=== PATIENT | female | born 1975 | race Caucasian/White ===

== ENCOUNTER 2023-12-21 13:05 | Emergency (ER) | payer BC ==
--- OUTSIDE RECORDS SUMMARY | 2023-12-21 13:07 | XMS REPORT | Continuity of Care Document ---
Author Name Unknown Address [address] [facility] [place] [address] [facility] Address [address] [facility] [address] [place] [address] Care Team Providers Care Installation Manager Name Role Phone Riya Gill Silas Primary Care Physician [phone] Reji Attending Clinician Unavailab Danie Aldridge Attending Clinician Unavailable Cary Knutson Attending Clinician Unavailable Kenia RN, Monique Attending Clinician Unavailable Doctor Unassigned, [place] Attending Clinician U PATI Robbins Attending Clinician Unavailable Reji Admitting Clinician Unavailab Cary Ruiz Admitting Clinician Unavailable Payers Payer Name Policy Type Policy Number Effective Date Expirati on Date Source [place] [id number] 2020 00:00:00 Problems Condition Name Condition Details Condition Category Status Onset Date Resolution Date Last Treatment Date Treating Clinician Comments Source 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 Active 12-14 00:00: 00 [facility] Urinary incontinen ce Urinary Incontinen ce Problem Active 12-14 00:00: 00 [facility] Allergies, Adverse Reactions, Alerts Allergy Name Allergy Type Status Severity Reaction(s) Onset Date Inactive Date Treating Clinician Comments Source Penicill ins DA Active [place] rash 2022-04- 00:00: 00 [facility] Penicill ins DA Active [place] rash 2022-04- 00:00: 00 [facility] Penicill ins DA Active MO rash 2010-0 6-15 00:00: 00 [facility] NO KNOWN ALLERGIE S Drug Class Active [facility] PENICILL INS Allergy to substanc e Active Itching, Rash [facility] Social History Social Habit Start Date Stop Date Quantity Comments Source [facility] to SARS-CoV-2 (event) 2020-11-16 00:00:00 2020-12-16 11:47:00 Not sure [facility] Sex Assigned At 1975 00:00:00 1975 00:00:00 [facility] Smoking Status Start Date Stop Date Source Tobacco smoking consumption unknown [facility] Vital Signs Vital Name Observation Time Observation Value Comments S ource Body Weight 2023-10-04 00:00:00 126 [lb_av] [facility] BMI (Body Mass Index) 2023-10-04 00:00:00 24.6 kg/m2 [facility] Height 2023-10-04 00:00:00 60 [in_i] [facility] BP Diastolic 2023-10-04 00:00:00 80 mm[Hg] [facility] BP Systolic 2023-10-04 00:00:00 122 mm[Hg] [facility] Procedures Procedure Date / Time Performed Performing Clinician Source Hysterectomy 2023-04-13 00:00:00 [facility] ASSIGNMENT OF BENEFITS 2020-12-16 16:26:40 Docto r Unassigned, [place] [facility] Hernia Repair 2008-04-26 00:00:00 [facility] Encounters Start Date/Time End Date/Time Encounter Type Admission Type Attending Clinicians Care Facility Care Department Encounter ID Source 2023-10-04 00:00:00 2023-10-04 00:00:00 Cary Knutson MD: [id number], [address], [place] [address] , Ph. [phone] [facility] - JUAN _[address] Office* [id number] [facility] 2023-06-09 00:00:00 2023-06-09 00:00:00 Outpatient [facility] _Cathey PRIV PRIV [id number] [facility] 2023-06-08 00:00:00 2023-06-08 00:00:00 Outpatient [facility] _Cathey PRIV PRIV [id number] [facility] 2023-06-07 00:00:00 2023-06-07 00:00:00 [facility]patient [facility] _Cathey PRIV PRIV [id number] [facility] 2023-04-29 00:00:00 2023-04-29 00:00:00 Outpatient [facility] _Cathey PRIV PRIV [id number] [facility] 2023-04-28 00:00:00 2023-04-28 00:00:00 Outpatient [facility] _Cathey PRIV PRIV [id number] [facility] 2023-04-16 15:00:00 2023-04-16 21:15:00 Emergency EM Danie Moran [facility] [id number] [facility] 2023-04-13 05:42:00 2023-04-14 13:04:00 Inpatient ARNDY ZeniaCary jennings [facility].01 [id number] [facility] 2023-03-29 00:00:00 2023-03-29 00:00:00 Outpatient [facility] _Cathey PRIV PRIV [id number] [facility] 2023-03-29 00:00:00 2023-03-29 00:00:00 Outpatient [facility] _Cathey PRIV PRIV [id number] [facility] 2023-03-26 00:00:00 2023-03-26 00:00:00 Outpatient [facility] _Cathey PRIV PRIV [id number] [facility] 2023-03-24 00:00:00 2023-03-24 00:00:00 Outpatient [facility] _Cathey PRIV PRIV [id number] [facility] 2023-02-06 00:00:00 2023-02-06 00:00:00 Outpatient [facility] _Cathey PRIV PRIV [id number] [facility] 2023-01-27 00:00:00 2023-01-27 00:00:00 Outpatient [facility] _Cathey PRIV PRIV [id number] [facility] 2023-01-04 00:00:00 2023-01-04 00:00:00 Outpatient [facility] _Cathey PRIV PRIV [id number] [facility] 2023-01-04 00:00:00 2023-01-04 00:00:00 Outpatient [facility] _Cathey PRIV PRIV [id number] [facility] 2023-01-01 00:00:00 2023-01-01 00:00:00 Outpatient [facility] _Cathey PRIV PRIV [id number] [facility] 2022-12-30 00:00:00 2022-12-30 00:00:00 Outpatient [facility] _Cathey PRIV PRIV [id number] [facility] 2022-12-14 00:00:00 2022-12-14 00:00:00 Outpatient [facility] _Cathey PRIV PRIV [id number] [facility] 2022-12-14 00:00:00 2022-12-14 00:00:00 Outpatient [facility] _Cathey PRIV PRIV [id number] [facility] 2022-12-11 00:00:00 2022-12-11 00:00:00 Outpatient [facility] _Cathey PRIV PRIV [id number] [facility] 2022-12-10 00:00:00 2022-12-10 00:00:00 Outpatient [facility] _Cathey PRIV PRIV [id number] [facility] 2020-12-17 00:00:00 2020-12-17 00:00:00 Letter (Out) Monique Aquino [facility] [id number] [id number] [id number] [facility] 2020-12-17 00:00:00 2020-12-17 00:00:00 Patient Secure Msg Doctor Unassigned, [place] [facility] [id number] [id number] [id number] [facility] 2020-12-16 11:30:00 2020-12-16 11:30:00 Outpatient Rebekah PATI [facility] [id number] [facility] 2020-12-16 00:00:00 2020-12-16 00:00:00 Orders Only Doctor Unassigned, [place] [facility] [id number] 350.1.13.10 4.2.7.2.686 [id number] [facility] Results Test Description Test Time Test Comments Results Resul t Comments Source - CT ABD PELVIS W/CONT 2023-04-16 20:14:00 [facility] 1975 Sex: F Patient Name: ARSLAN TERAN Unit No: [id number] EXAMS: CPT CODE: [id number] CT ABD PELVIS W/CONT 28921 Clinical History: Rule out obstruction s/p partial hysterectomy 04/13. Exam: CT abdomen/pelvis with contrast Comparison: None. Technique: Contiguous 3.75 mm axial images were obtained from the lung bases through the symphysis pubis after the administration of 100 cc of Isovue-300 intravenous contrast only during the portal venous phase. Coronal and sagittal reformatted images are provided. CT radiation dose optimization is achieved for this examination by the use of a CT protocol in accordance with ACR practice standards and adherence to industrial analyst recommendations. One or more of the following dose reduction techniques were used: automated exposure control, adjustment of the mA and/or kV according to patient size, and/or utilization of iterative reconstruction technique. DLP: 185.43 mGy-cm. Findings: Please note that lack of oral contrast limits evaluation of the GI tract. Visualized lung bases are clear. Tiny low-density area within the right hepatic lobe is too small to further characterize and nonspecific. The liver, spleen, pancreas and adrenal glands are unremarkable. Small calcified gallstones without pericholecystic inflammatory changes. Kidneys enhance symmetrically following injection of contrast. Small left renal cyst. Kidneys are otherwise unremarkable with no evidence of hydroureter or hydronephrosis. Unopacified loops are normal in caliber. No evidence of acute appendicitis. A few sigmoid colon diverticula without pericolonic inflammatory changes. Fluid throughout the colon and within several small bowel loops associated with mild mucosal enhancement. Mild mucosal enhancement also suggested of the stomach. Tiny paraesophageal hiatal hernia. No significant bowel wall thickening. No free fluid or air. No lymphadenopathy is identified. The urinary bladder is partially filled and appears grossly unremarkable. No significant pelvic free fluid. Status post [facility] NAME: CRESENCIOARSLAN Radiology Department PHYS: [id number] - Danie Moran MD [address] : 1975 AGE: 47 SEX: F [place], [place] [address] LOC: [place] PHONE #: [phone] EXAM DATE: 04/16/2023 STATUS: REG ER FAX #: [phone] RAD NO: [id number] Page 1 Signed Report 1 Patient Name: ARSLAN TERANN Unit No: [id number] EXAMS: CPT CODE: [id number] CT ABD PELVIS W/CONT 09850 (Continued) hysterectomy with trace stranding within the pelvis. Tiny dots of air along the right lower anterior pelvic wall. There are no aggressive appearing lytic or blastic lesions identified of the visualized bones. Degenerative facet joint arthropathy with grade 1 anterolisthesis of L4 on L5. Impression: Multiple fluid-filled bowel loops with associated mild nonspecific mucosal enhancement may suggest a mild infectious/inflammato ry gastroenterocolitis. No evidence of mechanical bowel obstruction. Multiple surgical changes in the pelvis. Mild colonic diverticulosis. Small gallstones. Small left renal cyst. Degenerative facet joint changes with mild grade 1 anterolisthesis of L4 on L5. at 2014 Reported and signed by: Zoila Allen MD CC: Danie Moran MD Technologist: RT Rolo CTDI: 4.06 DLP: 185.43 Trnscrbd D/ (2013) t.SDR.MT6 [facility] NAME: CRESENCIOARSLAN HERNANDEZ KAYLI Radiology Department PHYS: Danie Herr MD [address] : 1975 AGE: 47 SEX: F [place] [address] LOC: .ERS PHONE #: [phone] EXAM DATE: 04/16/2023 STATUS: REG ER FAX #: [phone] RAD NO: [id number] Page 2 Signed Report 1 Patient Name: ARSLAN TERAN Unit No: [id number] EXAMS: CPT CODE: [id number] CT ABD PELVIS W/CONT 55648 (Continued) Orig Print D/T: S: 04/16/2023 (2016) [facility] NAME: CRESENCIOARSLAN MILAN Radiology Department PHYS: Danie Herr MD [address] : 1975 AGE: 47 SEX: F [place] [address] LOC: F.ERS PHONE #: [phone] EXAM DATE: 04/16/2023 STATUS: REG ER FAX #: [phone] RAD NO: [id number] Page 3 Signed Report 1 CREATININE W ESTIMATED [id number] 19:20:00* Test Item Value Reference Range Interpretation Comme nts BEDSIDE CREATININE (test cod e = CREATBED) 0.54 mg/dL 0.51-1.19 N GLOMERULAR FILTRATION RATE P OC (test code = GFRBED) >60 58-135 N CBC W/AUTO [id number] 19:11:00* Test Item Value Reference Range Interpretation Comme nts WHITE BLOOD CELL (test code = WBC) 10.4 K/mm3 6.5-12.3 N RED BLOOD CELL (test code = RBC) 4.96 M/mm3 3.51-4.69 H HEMOGLOBIN (test code = HGB) 13.7 g/dL 10.1-13.8 N HEMATOCRIT (test code = HCT) 41.0 % 32.5-41.8 N MEAN CELL VOLUME (test code = MCV) 82.7 fL 84.6-96.6 L MEAN CELL HGB (test code = MCH) 27.6 pg 27.3-33.9 N MEAN CELL HGB CONCETRATION ( test code = MCHC) 33.4 gm/dL 32.0-34.2 N RED CELL DISTRIBUTION WIDTH (test code = RDW) 14.4 % 12.2-16.3 N PLATELET COUNT (test code = PLT) 347 K/mm3 134-363 N MEAN PLATELET VOLUME (test c ode = MPV) 9.3 fL 9.2-12.7 N NEUTROPHIL % (test code = NT%) 72.4 % 57.9-77.3 N LYMPHOCYTE % (test code = LY%) 19.3 % 14.5-29.7 N MONOCYTE % (test code = MO%) 5.8 % 3.6-10.2 N EOSINOPHIL % (test code = EO%) 1.5 % 0.0-3.0 N BASOPHIL % (test code = BA%) 0.7 % 0.1-0.9 N NEUTROPHIL # (test code = NT#) 7.6 K/mm3 LYMPHOCYTE # (test code = LY#) 2.0 K/mm3 MONOCYTE # (test code = MO#) 0.6 K/mm3 EOSINOPHIL # (test code = EO#) 0.16 K/mm3 BASOPHIL # (test code = BA#) 0.1 K/mm3 [id number] 12:28:00* Test Item Value Reference Range Interpretation Comme nts SURGICAL (test code = SR) R UN DATE: 04/16/23 [facility] PAGE 1 RUN TIME: 1228 Specimen Inquiry RUN USER: INTERFACE P ATIENT: ARSLAN TERAN LOC: VELMA U #: [id number] AGE/SX: 47/F ROOM: [facility] RE04[facility]: Cary Knutson MD : [birth year] BED: A DIS: 04/14/23 STATUS: DIS Dell TLOC: SPEC #: [id number] RECD: 04/13/23 STATUS: ROXI REMarcin #: [id number] REIANLDO: 04/13/[address] [facility] [address]: Cary Knutson MD ENTERED: 04/13/23 SP TYPE: SURGICAL OTHR DR: ORDERED: ANATOMIC SPEC, SPEC TRACK, [id number] PROCEDURES: [id number] (04/13/23) TISSUES: A. UTERUS W/WO TUBES OVARIES NON NEOPLASTIC/PROLAPSE - UTERUS, CERVIX, BILATERAL TUBES FINAL DIAGNOSIS Uterus and bilateral fallopian tubes, TLH/BS:- Uterus, 134 g- Adenomyosis- Inactive endometrium with metaplastic changes likely secondary to IUD- Cervix without specific pathologic abnormality- Unremarkable bilateral fallopian tubes GROSS DESCRIPTION Fixative: FormalinLabeled: Uterus, cervix, bilateral tubesSpecimen received: Intact uterus with attached cervix attached bilateral fallopian tubesWeight: Left fallopian tube 2 g; right fallopian tube 2 g; uterus with attached cervix 134gOrientation: Anterior blue, posterior blackDimensions: 6.5 cm cornu to cornu, 5.1 cm anterior to posterior, 9.5 cm fundus todistal-most portion of exocervixSerosa: Lee-pink and smoothUterine contour: Spherical and unremarkableCervix: 2.5 cm in length and 3.7 cm in diameterEctocervical Mucosa: Scotia-purple smooth and glisteningCervical os: Slit-like; 1.5 cm acrossEndocervical canal: Lee and rugated Endometrial cavity: 4.5 cm in length by 3.0 cm in width and with a white, plastic T-shapeddevice with metal coiling, grossly consistent with an IUDEndometrium: Red-lee, smooth and loosely attachedEndometrial thickness: Up to 0.2 cmMyometrium: Lee-pinkMyometrial thickness: Up to 2.2 cmMyometrial abnormalities: Pale lee and thickened areas below the endometrium with anteriorand posterior half; extensive sectioning reveals no distinct or grossly identifiablefibroidsLeft fallopian tube: 5.8 cm in length and ranging from 0.3 to 1.1 cm in diameterOuter surface: Morris, smooth and glistening serosa and brown and Lush fimbria CONTINUED ON NEXT PAGE R UN DATE: 04/16/23 [facility] PAGE 2 RUN TIME: 1228 Specimen Inquiry RUN USER: INTERFACE S [facility] #: [id number] PATIENT: ARSLAN TERAN #[id number] (Continued) GROSS DESCRIPTION (Continued) Cut surface: Pinpoint lumen with a pinpoint area of red-brown hemorrhageRight fallopian tube: 7.2 cm in length and ranging from 0.2-0.6 cm in diameterOuter surface: Morris, smooth and glistening serosa and brown and Lush fimbriaCut surface: Pinpoint lumen with a pinpoint area of red-brown hemorrhage The specimen is submitted representatively as follows: A1 12:00 cervixA2 6:00 cervixA3 anterior endomyometriumA4 posterior endomyometriumA5 endometriumA6 left fallopian tubeA7 right fallopian tube 04/13/23 Technical component performed at [facility] [place] [address] Immunohistochemical stains and Special Stains are performed at [address], [address], [place] [address] Unless gross only, the diagnosis is based upon microscopic examination. Immunohistochemistry: This test was developed and its performance characteristicsdetermined by this laboratory. It has not been approved nor does it need approval by [place] FDA. Appropriate positive and negative controls are reviewed and judged to beacceptable. This laboratory is certified under the Clinical Laboratory ImprovementAmendments (CLIA-88) as qualified to perform high complexity clinical laboratory testing. CLINICAL INFORMATION 04/13/23, OUT OF BODY 0833, IN FORMALIN 1017, CYSTOCELE, UTERINE PROLAPSE, RECTOCELE, BRYON. --- Signed SIGNATURE ON FILE WarrenElizabeth RUIZ 04/16/23 1228 END OF REPORT HGB [id number] 04:37:00* Test Item Value Reference Range Interpretation Comme nts HEMOGLOBIN (test code = HGB) 11.8 g/dL 10.1-13.8 N HEMATOCRIT (test code = HCT) 35.1 % 32.5-41.8 N BASIC METABOLIC [id number] 06:47:00* Test Item Value Reference Range Interpretation Comme nts SODIUM (test code = NA) 138 mEq/L 135-145 N POTASSIUM (test code = K) 3.5 mEq/L 3.5-5.0 N CHLORIDE (test code = CL) 104 mEq/L 100-115 N CARBON DIOXIDE (test code = CO2) 24 mEq/L 22-31 N ANION GAP (test code = GAP) 13.60 10-20 N GLUCOSE (test code = GLU) 126 mg/dL 65-110 H BLOOD UREA NITROGEN (test code = BUN) 11 mg/dL 7-18 N CREATININE (test code = CREAT) 0.7 mg/dL 0.5-1.0 N CALCIUM (test code = CA) 8.6 mg/dL 8.4-10.2 N GLOMERULAR FILTRATION RATE (test code = GFR) 106 ml/min >60 N The Glomerular Filtration Rate is a calculated parameterbased on serum Creatinine, patient age and sex. GFR valuesless than 60 mL/min/1.73 square meters are indicative ofChronic Kidney Disease. Values less than 15 mL/min/1.73square meters indicate Kidney failure. The calculation forGFR is based on the CKD-EPI (2020) calculation. This formulais race indifferent and is the recommended formula for GFRby the National Kidney Foundation for Adults.The GFR will not calculate if the sex is unknown or if thepatient's age is <18 years. UR HCG [id number] 06:22:00* Test Item Value Reference Range Interpretation Comme nts UR HCG QUAL (test code = HCGQLU) NEGATIVE 1. Very dilute u rine specimens, as indicated by a lowspecific gravity, may not contain statement services representative levels ofhCG. 2. False negative results may occur when the levels of hCGare below the sensitivity level of the test. If is still suspected, a first morningurine specimen should be collected 48 hours later andtested. Notes Date/Time Note Provider Source 2023-04-16 15:31:00 [facility] EMERGENCY PROVIDER REPORT REPORT#:[id number] REPORT STATUS: Signed DATE:04/16/23 TIME: 1530 PATIENT: ARSLAN TERAN UNIT #: [id number] ROOM/BED: AGE: 47 SEX: F PCP PHYS: Cary Knutson MD SERVICE AUTHOR: Jareth Villanueva MD * ALL edits or amendments must be made on the electronic/computer document * Jareth Villanueva 04/16/23 1531: HPI-General Illness General Initial Greet Date/Time 04/16/23 1508 Presentation Chief Complaint constipation Free Text HPI Notes Free Text HPI Notes 47 years old patient 3 days status post partial hysterectomy presents complaining of increasing abdominal pain and constipation, patient has tried different bowel regimens and only able to pass gas and liquid diarrhea, denies vomiting fever or any other complaints. Review of Systems ROS Statements All systems rev neg except as marked. Free Text ROS Notes Free Text ROS Notes CONSTITUTIONAL: Normal; negative for fever, weight change, fatigue, or aching. HEENT: Eyes normal; negative for, irritation, or visual field defects. Ears normal; Negative for pain . Nose normal; Negative for runny nose, sinus problems , or nosebleeds. Mouth normal; Negative for dental problems,. Throat normal; Negative for hoarseness, difficulty swallowing, or sore throat. CARDIOVASCULAR: Normal; Negative for chest pain or, high blood pressure, orthopnea, PULMONARY: Normal; Negative for cough, sputum, shortness of breath or wheezing, SKIN: Normal; Negative for rashes. MUSCULOSKELETAL: Normal; Negative for back pain, joint pain. NEUROLOGIC: Normal; Negative for blackouts, headaches, seizures or dizziness. PSYCHIATRIC: Normal; Negative for anxiety, depression, or phobias. ENDOCRINE: Normal; Negative for diabetes, thyroid.HEMATOLOGIC/LYMPHATIC: Normal; Negative for anemia, swollen glands, or blood disorders. IMMUNOLOGIC: Negative; Negative for steroids, chemotherapy, or cancer. VASCULAR: Normal; Negative for varicose veins, blood clots, or leg ulcers. Past Medical History - Adult Stated Complaint CONSTPATED AFTER HYSTRECTECTOMY Allergies Coded Allergies: Penicillins (Intermediate, rash 04/16/23) SPECIFIC Allergy: PENICILLINS Physical Exam Vital Signs Vital Signs First Documented: Result Date Time Pulse Ox 100 04/16 1507 B/P 133/84 04/16 1507 B/P Mean 100 04/16 1507 O2 Delivery Room air 04/16 150 Temp 98.7 04/16 1507 Pulse 85 04/16 1507 Resp 16 04/16 1507 Last Documented: Result Date Time Pulse Ox 100 04/16 1916 B/P 128/86 04/16 1916 B/P Mean 100 04/16 191 O2 Delivery Room air 04/16 1916 Temp 98.5 04/16 191 Pulse 86 04/16 191 Resp 18 04/16 1916 Review of Vital Signs Reviewed, Vital signs normal Basic Physical Exam Basic PE GEN: Well appearing/NAD, HEAD: Atraumatic/NC, ENT: Membranes moist, NECK: Supple, CV: Reg rate rhythm, ABD: Soft/non-tender, EXT: No gross abnormality, NEURO: alert oriented, NEURO: gross movement NL Re-Evaluation MDM ED Course Medication(s) Ordered Medication(s) Ordered: Diagnostic Agents Sig/Promise Start time Last Medication Dose Route Stop Time Status Admin Iopamidol 100 ML .STK-MED ONE 04/16 1933 DC 04/16 IV 04/16 Electrolytic, Caloric, And Rosa Sig/Promise Start time Last Medication Dose Route Stop Time Status Admin Potassium Chloride 20 MEQ X1ED STA 04/16 2042 DC PO 04/16 2043 Gastrointestinal Drugs Sig/Promise Start time Last Medication Dose Route Stop Time Status Admin Ondansetron Base 4 MG ONCE ONE 04/16 1745 DC 04/16 SL 04/16 1746 174 Polyethylene Glycol/ 250 ML .[Q15MN] 04/16 1530 CKD 04/16 Electrolytes PO 5 Other Sig/Promise Start time Last Medication Dose Route Stop Time Status Admin Sodium Chloride 50 ML .STK-MED ONE 04/16 1933 DC 04/16 IV 04/16 Patient Discharge Departure Vital Signs/Condition Vital Signs First Documented: Result Date Time Pulse Ox 100 04/16 1507 B/P 133/84 04/16 1507 B/P Mean 100 04/16 1507 O2 Delivery Room air 04/16 150 Temp 98.7 04/16 150 Pulse 85 04/16 1507 Resp 16 04/16 1507 Last Documented: Result Date Time Pulse Ox 100 04/16 191 B/P 128/86 04/16 1916 B/P Mean 100 04/16 191 O2 Delivery Room air 04/16 1916 Temp 98.5 04/16 191 Pulse 86 04/16 191 Resp 18 04/16 1916 All vital signs available at the time of this entry have been reviewed. Condition Stable, Improved Clinical Impression Time of Impression 1757 Pt/Provider Handoff Care Transferred to Dr Moran Care Transferred at 1757 Discussed Complaint(s) Yes Danie Moran 04/16/23 1855: Interpretation Diagnostics Lab Results Interpretation Results Laboratory Tests 04/16/231899: [Embedded Image Not Available] Laboratory Tests: 04/16 1900 Chemistry Sodium (135 - 145 mEq/L) 140 Potassium (3.5 - 5.0 mEq/L) 3.4 L Chloride (100 - 115 mEq/L) 102 Carbon Dioxide (22 - 31 mEq/L) 27 Anion Gap (10 - 20) 14.90 BUN (7 - 18 mg/dL) 6 L Creatinine (0.5 - 1.0 mg/dL) 0.9 POC Creatinine (0.51 - 1.19 mg/dL) 0.54 Glomerular Filtr Rate (>60 ml/min) 78 Estimated GFR (MDRD) (58 - 135) >60 Glucose (65 - 110 mg/dL) 99 Calcium (8.4 - 10.2 mg/dL) 8.7 Total Bilirubin (0.2 - 1.0 mg/dL) 0.6 AST (15 - 37 units/L) 18 ALT (12 - 78 units/L) 19 Total Alk Phosphatase (46 - 116 units/L) 52 Total Protein (6.3 - 8.2 gm/dL) 7.9 Albumin (3.4 - 4.8 gm/dL) 4.0 Hematology WBC (6.5 - 12.3 K/mm3) 10.4 RBC (3.51 - 4.69 M/mm3) 4.96 H Hgb (10.1 - 13.8 g/dL) 13.7 Hct (32.5 - 41.8 %) 41.0 MCV (84.6 - 96.6 fL) 82.7 L MCH (27.3 - 33.9 pg) 27.6 MCHC (32.0 - 34.2 gm/dL) 33.4 RDW (12.2 - 16.3 %) 14.4 Plt Count (134 - 363 K/mm3) 347 MPV (9.2 - 12.7 fL) 9.3 Neut % (Auto) (57.9 - 77.3 %) 72.4 Lymph % (Auto) (14.5 - 29.7 %) 19.3 Bergen % (Auto) (3.6 - 10.2 %) 5.8 Eos % (Auto) (0.0 - 3.0 %) 1.5 Baso % (Auto) (0.1 - 0.9 %) 0.7 Neut # (Auto) (K/mm3) 7.6 Lymph # (Auto) (K/mm3) 2.0 Berg[place] # (Auto) (K/mm3) 0.6 Eos # (Auto) (K/mm3) 0.16 Baso # (Auto) (K/mm3) 0.1 Recent Impressions: CAT SCAN - CT ABD PELVIS W/CONT 04/16 1925 Report Impression - Status: SIGNED Entered: 04/16/20232016 Impression: Multiple fluid-filled bowel loops with associated mild nonspecific mucosal enhancement may suggest a mild infectious/inflammatory gastroenterocolitis. No evidence of mechanical bowel obstruction. Multiple surgical changes in the pelvis. Mild colonic diverticulosis. Small gallstones. Small left renal cyst. Degenerative facet joint changes with mild grade 1 anterolisthesis of L4 on L5. Impression By: [email or web address] - Zoila Allen MD Lab Statement Laboratory studies reviewed and considered in the medical decision-making. Labs significant for potassium level 3.4. Will give 20 mEq of KCl. Imaging Statement Radiographic studies reviewed and considered in the medical decision-making. Patient CAT scan of abdomen pelvis does not show mechanical bowel obstruction. Patient has mild gastroenterocolitis, cholelithiasis, small gallstones, small left renal cyst. Re-Evaluation MDM Re-Evaluation/Progress #1 Text/Dict Note Patient is now having liquid bowel movement with small amount of fecal matter. Time of Re-Eval 6 Re-Eval Status Improved Re-Evaluation/Progress #2 Time of Eval 2044 Re-Eval Status Improved Eval Following Treatment Pt. feels better MDM-Treatment/Evaluation ED Course 18:55 -patient signed out to Dr. Moran from Dr. Villanueva pending reevaluation. Patient states that she is having liquid bowel movements. However there is still some concern of an obstruction. Will obtain labs and CT abdomen pelvis to rule out bowel obstruction. Patient denies pain at this time. Patient Discharge Departure Clinical Impression Clinical Impression Primary Impression: Constipation Secondary Impressions: Cholelithiasis, Diverticulosis, Gastroenteritis and colitis, viral, Hypokalemia, Renal cyst, left Disposition Decision Discharge )( Discharged to Home Yes )( Time 2048 )( Date 04/16/23 Discharge/Care Plan Counseled Regarding Diagnosis, Lab results, Imaging studies, Need for follow-up, When to return to ED Patient Instructions ED Diverticulosis, ED Gastroenteritis, Viral (Adult), Treating Gallstones, Understanding Colitis Additional Instructions You have been evaluated in the Emergency Department today for abdominal pain, back pain and constipation. Your evaluation did not show evidence of medical conditions requiring emergent intervention at this time. Please schedule an appointment with your primary care physician. Return to the Emergency Department if you experience worsening or uncontrolled pain, fevers 100.4 F or greater, recurrent vomiting, inability to tolerate food or fluids by mouth, bloody stools or vomit, black or tarry stools, or any other concerning symptoms. Thank you for choosing us for your care. Discharge Note I have spoken with the patient and/or caregivers. I have explained the patient's condition, diagnoses and treatment plan based on the information available to me at this time. I have answered the patient's and/or caregiver's questions and addressed any concerns. The patient and/or caregivers have as good an understanding of the patient's diagnosis, condition and treatment plan as can be expected at this point. The vital signs have been stable. The patient's condition is stable and appropriate for discharge from the emergency department. The patient will pursue further outpatient evaluation with the primary care physician or other designated or consulting physician as outlined in the discharge instructions. The patient and/or caregivers are agreeable to this plan of care and follow-up instructions have been explained in detail. The patient and/or caregivers have received these instructions in written format and have expressed an understanding of the discharge instructions. The patient and/or caregivers are aware that any significant change in condition or worsening of symptoms should prompt an immediate return to this or the closest emergency department or a call to 911. at 1757 at 2052 RPT #:[id number] END OF REPORT [facility] 2023-04-14 07:16:00 [facility] ([facility] Gynecology Post Prog Note REPORT#:[id number] REPORT STATUS: Signed REPORT INITIALIZATION DATE:04/14/23 TIME: 715 PATIENT: ARSLAN TERAN UNIT #: [id number] ROOM/BED: [address] : 71 AGE: 47 SEX: F ATTEND: Cary Knutson MD ADM AUTHOR: Cary Knutson MD REPT SERVICE DT/TIME: 04/14/23 0716 * ALL edits or amendments must be made on the electronic/computer document * General ORM Surgeries: Surgery Date and Time: 04/13/2023 0730 Primary Procedure: FOUR PUNCTURE TOTAL LAPAROSCOPIC Secondary Procedures: LAPAROSCOPIC UTEROSACRAL LIGAMENT MIDURETHRAL SLING CYSTOSCOPY WITH PROCEDURE POSTERIOR REPAIR LAPAROSCOPIC BILATERAL SALPINGECTOMY Post-op: day 1 Subjective Patient reports: Yes: ambulating, flatus/bowel movement, pain controlled, tolerating diet. Objective General VS/I O: Last Documented: Result Date Time Pulse Ox 96 04/14 0405 B/P 104/66 04/14 0405 B/P Mean 78.5 04/14 0405 O2 Delivery Room air 04/14 405 Temp 98.6 04/14 405 Pulse 79 04/14 040 Resp 18 04/14 040 O2 Flow Rate 10 04/13 1110 24 hour I O ending at 0700: 04/14 0700 04/13 1900 Intake Total 900.00 1420.00 Output Total 4200 800 Balance -3300.00 620.00 Intake, IV 900.00 1300.00 Intake, Oral 120 Output, 250 Estimated Blood Loss Output, Urine 4200 550 PATIENT WEIGHT: Weight (lb): 125 Weight (oz): 14.14 Weight (kg): 57.100 Physical Exam General appearance: alert, awake, no acute distress, pleasant, conversational, no respiratory distress Abdomen: normal bowel sounds, soft Results Findings/Data: Laboratory Tests 04/14 359 Hematology Hgb (10.1 - 13.8 g/dL) 11.8 Hct (32.5 - 41.8 %) 35.1 Diagnosis, Assessment Plan Free Text A P: -voiding trial -d/c instructions reviewed at [address] [facility] #:[id number] END OF REPORT [facility] 2023-04-13 10:16:00 [id number] [facility] [place] [id number] PATIENT NAME: ARSLAN TERAN ADMIT DATE: 04/13/23 ACCOUNT NO: [id number] ROOM NO: [facility] AGE: 47 SEX: F ADMITTING PHYSICIAN: Cary Knutson MD ATTENDING PHYSICIAN: Cary Knutson MD OPERATION DATE: 04/13/2023 PREOPERATIVE DIAGNOSES: 1. Cystocele. 2. Uterine prolapse. 3. Rectocele. 4. Stress urinary incontinence. POSTOPERATIVE DIAGNOSES: 1. Cystocele. 2. Uterine prolapse. 3. Rectocele. 4. Stress urinary incontinence. PROCEDURES: 1. Total laparoscopic hysterectomy. 2. Laparoscopic bilateral salpingectomy. 3. Laparoscopic bilateral ureterolysis. 4. Laparoscopic uterosacral ligament colpopexy. 5. Transobturator midurethral sling. 6. Cystourethroscopy. 7. Posterior colporrhaphy. SURGEON: Cary Knutson M.D. PARKING PATROLLER: R4 resident Ximena Conteh M.D. ANESTHESIA: General endotracheal and local. ESTIMATED BLOOD LOSS: 250 mL. INDICATIONS: Ms. Teran is a 47-year-old female who presented with symptomatic stage II prolapse. Complex urodynamic testing with reduction of prolapse also confirmed urodynamic stress incontinence. After extensive counseling, she elected to have surgical intervention. FINDINGS: Laparoscopy revealed normal-appearing liver margin. Normal-appearing fallopian tubes and ovaries. The uterus is globally enlarged. Cystourethroscopy revealed ureteral orifices in the normal anatomical location with excellent bilateral ureteral efflux. There was no evidence of bladder lesions or injury. The urethra was noted to be intact. PROCEDURE IN DETAIL: The patient was taken to the operating room where she was PATIENT NAME: ARSLAN TERAN prepped and draped in the usual sterile fashion in a dorsal lithotomy position. A Linares catheter was placed through the urethral meatus. A MARIE uterine manipulator and AHSAN colpotomizer were secured in place. Attention was then turned to the abdomen. In the umbilical region, a 5-mm skin incision was made. Through this incision, the Veress needle was introduced and pneumoperitoneum to 15 mmHg was obtained. A 5-mm laparoscope via 5-mm Optiview trocar was inserted. Inferior epigastric vessels were identified along the patient's anterior abdominal wall. In the patient's right and left lower quadrant as well as midline suprapubically, 5 mm skin incisions were made and 5 mm trocars were placed under direct visualization. The pelvis was then examined with the above-noted findings. Beginning on the patient's left side, the round ligament was coagulated and transected with the Harmonic scalpel. The Harmonic scalpel was used to open the anterior leaf of the broad ligament followed by the vesicouterine peritoneum. The Harmonic scalpel was then used to divide the fallopian tube from the left mesosalpinx. The left uteroovarian ligament was then coagulated and transected with the Harmonic scalpel. This was extended to the previously transected round ligament. The uterine artery was skeletonized. At the level of the internal cervical os, the uterine artery was coagulated. The same was then performed on the patient's right side with good hemostasis. EndoShears were then used to sharply dissect the bladder from the pubocervical tissue anteriorly. At the level of the internal cervical os, the uterine artery was again coagulated and transected with the Harmonic scalpel. This was performed bilaterally with good hemostasis. With the assistance of the vaginal AHSAN colpotomizer, the Harmonic scalpel was used to circumferentially detach the cervix from the apex of the vagina. Care was taken to stay inside of the previously transected uterine artery pedicle. The specimen was delivered through the vaginal colpotomy. The vaginal cuff was closed in a double layer fashion using a 0 V-Loc 180 suture. Good hemostasis was noted. A Lucite stent was placed in the vagina. The bladder was further dissected from the pubocervical tissue anteriorly. The course of the ureter along the right and left pelvic sidewall was visualized and its relationship to the uterosacral ligament. The peritoneum between the ureter and the uterosacral ligament was opened with EndoShears performing ureterolysis in hopes of preventing medial kinking of the ureters as well as to allow for skeletization of the uterosacral ligament. Two sutures of 0 Ethibond were placed in the proximal portion of the uterosacral ligament at approximately the level of the ischial spine through the uterosacral ligaments attachment to the posterior vaginal cuff and anteriorly through the pubocervical tissue plicating this tissue apically. This was performed bilaterally and all four sutures were tied and placed extracorporeally. The pelvis was then irrigated and then reexamined under low pressures with hemostasis assured. The anterior vaginal epithelium at the midurethra was injected with 0.25% Marcaine with epinephrine. A slightly greater than 1-cm incision was made. The vaginal epithelium was sharply dissected from the underlying urethra towards the ischiopubic ramus bilaterally. At the level of the clitoris and the genitofemoral fold, the skin was injected with 0.25% Marcaine with epinephrine and 3-mm skin incisions made. Through this incision, the transobturator trocar was introduced transversing the underlying muscle, the obturator membrane at its superomedial border and exiting through the previously made vaginal incision. The vaginal sulcus was inspected and noted to be free of any perforations. This was performed bilaterally. Linares catheter was removed. Cystourethroscopy was PATIENT NAME: ARSLAN TERANN then performed with a 70-degree cystoscope, revealing the above noted findings. A complete bladder survey with full bladder distention was performed. Linares catheter was replaced. The sling was then tensioned using Roblero scissors as a spacer between the mesh and underlying urethra. Excess mesh was trimmed at the skin margin. The vaginal epithelium was closed in a continuous fashion with 2-0 Vicryl suture. External skin incisions were closed with dermal glue. Trocars were removed under direct visualization. Pneumoperitoneum was released. Skin incisions were injected with 0.25% Marcaine with epinephrine. Skin incisions were closed with 4-0 Monocryl and dermal glue. The posterior vaginal wall and perineum were injected with 0.25% Marcaine with epinephrine. An elliptical incision was made at the introitus and previous scarring was excised. The posterior vaginal epithelium was opened in the midline. The vaginal epithelium was sharply dissected from the underlying rectovaginal tissue. The rectovaginal tissue was serially plicated with 2-0 PDS suture. The perineal body was reapproximated with 2-0 PDS suture. Good hemostasis was noted. The vaginal epithelium was appropriately trimmed. The vaginal epithelium was closed in a continuous fashion with 2-0 Vicryl suture. Again, good hemostasis was noted. The vagina was irrigated, hemostasis assured and a vaginal packing was placed. The patient tolerated the procedure well. Sponge, lap, and needle counts were correct x2. She was taken to recovery room in stable condition. Dictated By: Cary Knutson MD Date Dictated: 04/13/2023 10:16:40 Date Transcribed: 04/13/2023 10:39:44 ALFA/JORDAN/PASTOR Receipt ID: [id number] Authenticated by Cary Knutson MD On 04/13/2023 12:14:22 PM at 1214 PATIENT NAME: ARSLAN TERAN [facility]
[2023-12-21] MEDS ORDERED: ASPIRIN 81 MG CHEWABLE TABLET ONE (13:23)
[2023-12-21 13:41] LABS: Absolute Basophils 0.1 K/uL (0-0.5); Absolute Eosinophils 0.1 K/uL (0-0.5); Absolute Lymphocytes (CBC) 0.8 K/uL (0.7-4.9); Absolute Monocytes 0.7 K/uL (0.1-1.3); Absolute Neutrophil 5.7 K/uL (1.8-8.0); Basophils % 0.7 % (0-1.3); Eosinophils % 1.1 % (0-4.4); Hematocrit 42.1 % (36.0-45.0); Hemoglobin 14.2 g/dL (12.0-15.0); Lymphocytes % 10.9 % (15.3-44.8); MCH 28.3 pg (27.0-35.0); MCHC 33.8 g/dL (32.0-36.0); MCV 83.8 fL (80-100); MPV 7.4 fL (7.6-11.3); Monocytes % 9.8 % (3.3-12.3); Neutrophils % 77.5 % (41.7-73.7); Nucleated Red Blood Cells % 0.1 % (0-0); Platelets 286 thou/uL (152-406); RBC Red Blood Cell Count 5.03 M/uL (3.86-4.86); Red Cell Distribution Width 14.8 % (12.1-15.2)
[2023-12-21 14:01] LABS: ALT/SGPT 21 U/L (13-56); AST/SGOT 13 U/L (15-37); Albumin 4.2 g/dL (3.4-5.0); Albumin/Globulin Ratio 1.2 (1.1-1.8); Alkaline Phosphatase 60 U/L (45-117); Anion Gap 7.6 mEq/L (5.0-15.0); BUN Blood Urea Nitrogen 9 mg/dL (7-18); Bicarbonate 26 mEq/L (21-32); Bilirubin Direct < 0.2 mg/dL (0-0.2); Bilirubin Indirect, Calculated 0.3 mg/dL (0.2-0.8); Bilirubin Total 0.5 mg/dL (0.2-1.0); Globulin 3.6 g/dL (2.3-3.5); Glomerular Filtration Rate 86 ml/min (=/>90); Glucose Level 99 mg/dL (74-106); Magnesium 2.2 mg/dL (1.6-2.4); Potassium 3.6 mEq/L (3.5-5.1); Protein, Total 7.8 g/dL (6.4-8.2); Sodium Level 137 mEq/L (136-145); Troponin High Sensitivity < 3.0 pg/mL (<58.9)
--- NOTE | 2023-12-21 15:01 | RAD REPORT ---
EXAM DESCRIPTION: RAD - Chest Single View - 12/21/2023 2:39 pm CLINICAL HISTORY: CHEST PAIN COMPARISON: No comparisons FINDINGS: Lines: None. Lungs: No evidence of edema or pneumonia. Pleural: No significant pleural effusions or pneumothorax. Cardiac: The heart size is within normal limits. Mediastinum: Within normal limits. Bones: No acute fractures. Other: None IMPRESSION: No acute cardiopulmonary disease.
--- NOTE | 2023-12-21 16:22 | ER ---
Nurse's Notes [facility] Name: Adri Teran Age: 48 yrs Sex: Female : 1975 Arrival Date: 12/21/2023 Time: 13:05 Bed 11 Private MD: Diagnosis: Chest pain, unspecified Presentation: 12/20 13:10 Chief complaint: Patient states: chest pain, palpitations, and nausea x2 hours. [facility] Coronavirus screen: At this time, the client does not indicate any symptoms associated with coronavirus-19. Ebola Screen: No symptoms or risks identified at this time. Initial Sepsis Screen: Does the patient meet any 2 criteria? No. Patient's initial sepsis screen is negative. Does the patient have a suspected source of infection? No. Patient's initial sepsis screen is negative. Risk Assessment: Do you want to hurt yourself or someone else? Patient reports no desire to harm self or others. Onset of symptoms was December 21, 2023. 13:10 Method Of Arrival: Ambulatory [facility] 13:10 Acuity: EDISON 3 [facility] Triage Assessment: 13:11 General: Appears in no apparent distress. comfortable, well groomed, well developed, [facility] Behavior is cooperative, anxious. Pain: Complains of pain in chest Pain currently is 4 out of 10 on a pain scale. Cardiovascular: Reports chest pain, Capillary refill < 3 seconds. BATTERY TECHNICIAN: 13:11 LMP N/A - Post-menopause, Not [facility] Historical: - Allergies: 13:11 PENICILLINS; [facility] - Home Meds: 13:11 None [Active]; [facility] - PMHx: 13:11 None; [facility] - PSHx: 13:11 hysterectomy; [facility] - Immunization history:: Client reports receiving the 2nd dose of the Covid vaccine, Flu vaccine is not up to date. - Infectious Disease History:: Denies. - Social history:: Smoking status: Patient denies any tobacco usage or history of. Screenin:51 [facility] ED Fall Risk Assessment (Adult) History of falling in the last 3 months, me1 including since admission No falls in past 3 months (0 pts) Confusion or Disorientation No (0 pts) Intoxicated or Sedated No (0 pts) Impaired Gait No (0 pts) Mobility Assist Device Used No (0 pt) Altered Elimination No (0 pt) Score/Fall Risk Level 0 - 2 = Low Risk Maintained a safe environment, Provided non-skid footwear, Hourly rounding (assess needs \T\ fall precautionary measures) done. Abuse screen: Denies threats or abuse. Nutritional screening: No deficits noted. Tuberculosis screening: No symptoms or risk factors identified. Assessment: 13:51 General: Appears uncomfortable, well groomed, well developed, well nourished, Behavior me1 is calm, cooperative, appropriate for age, Reports CP, palpitations and nausea that started 2 hours ago. Pain: Complains of pain in chest Pain does not radiate. Pain currently is 5 out of 10 on a pain scale. Quality of pain is described as pressure, Pain began suddenly, Is continuous. Neuro: Level of Consciousness is awake, alert, obeys commands, Oriented to person, place, time, situation, Appropriate for age. Cardiovascular: Patient's skin is warm and dry. Respiratory: Airway is patent Trachea midline Respiratory effort is even, unlabored, Respiratory pattern is regular, symmetrical. GI: Reports nausea. : No signs and/or symptoms were reported regarding the genitourinary system. EENT: No signs and/or symptoms were reported regarding the EENT system. Derm: Skin is intact, is healthy with good turgor, Skin is pink, warm \T\ dry. Musculoskeletal: No signs and/or symptoms reported regarding the musculoskeletal system. Vital Signs: 13:10 BP 139 / 93; Pulse 87; Resp 18 S; Temp 99(O); Pulse Ox 99% on R/A; Weight 54.43 kg (R); kc6 Height 5 ft. 0 in. (R); Pain 4/10; 14:30 BP 117 / 83; Pulse 90; Resp 20; Pulse Ox 97% on R/A; me1 15:30 BP 120 / 84; Pulse 86; Resp 19; Pulse Ox 100% on R/A; me1 16:34 BP 118 / 79; Pulse 84; Resp 18; Temp 98.1; Pulse Ox 98% ; me1 13:10 Body Mass Index 23.44 (54.43 kg, 152.4 cm) [facility] 13:10 Pain Scale: Adult [facility] ED Course: 13:07 Patient arrived in ED. im 13:09 Miko Oh DO is Attending Physician. ms3 13:11 Triage completed. kc6 13:11 Arm band placed on. kc6 13:31 Inserted saline lock: 20 gauge in right antecubital area, using aseptic technique. kc6 Blood collected. Flushed with 10 mL NS. Patient maintains SpO2 saturation greater than 95% on room air. 13:36 Bailey Delgado, RN is Primary Nurse. me1 13:51 Patient has correct armband on for positive identification. Bed in low position. Call me1 light in reach. Side rails up X2. Provided Education on: POC. Verbalized understanding. . Client placed on continuous cardiac and pulse oximetry monitoring. NIBP monitoring applied. cardiac monitor technician on. Pulse ox on. NIBP on. Warm blanket given. 13:51 No provider procedures requiring assistance completed. me1 14:41 XRAY Chest (1 view) In Process Unspecified. EDMS 16:21 Mert Castro MD is Referral Physician. ms3 16:34 IV discontinued, intact, bleeding controlled, No redness/swelling at site. Pressure me1 dressing applied. Administered Medications: 13:27 Drug: Aspirin PO Chewable Tablet 324 mg PO once; 81 mg tablets x 4 Route: PO; kc6 15:43 Follow up: Response: No adverse reaction me1 Medication: 13:51 VIS not applicable for this client. me1 Outcome: 16:21 Discharge ordered by . ms3 16:34 Discharged to home ambulatory, with significant other, me1 16:34 Condition: stable 16:34 Discharge instructions given to patient, significant other, Instructed on discharge instructions, follow up and referral plans. Demonstrated understanding of instructions, follow-up care, 16:35 Patient left the ED. me1 Signatures: Dispatcher [employer] EDNV Miko Oh DO DO ms3 Racheal Escobedo, RN RN kc6 [place] Michelle, RN RN me1 Corrections: (The following items were deleted from the chart) 13:12 13:11 Home Meds: Unable to obtain; 6 kc6 13:51 13:10 Chief complaint: Patient states: chest pain, palpitations, and nausea x2 hours [id number]
--- NOTE | 2023-12-21 16:22 | EDPHYS ---
Physician Documentation [facility] Name: Adri Teran Age: 48 yrs Sex: Female : 1975 Arrival Date: 12/21/2023 Time: 13:05 Bed 11 Private MD: ED Physician Miko Oh HPI: 12/20 18:05 This 48 yrs old Female presents to ER via Ambulatory with complaints of Chest Pain. ms3 18:05 48-year-old female with no past medical history presents to the emergency department ms3 for chest tightness that began 2 hours prior to arrival. Patient states the symptoms occurred 2 nights ago as well as last night. Patient states the discomfort is a 4/10 and a scratchy feeling in her chest. Patient endorses nausea. Patient denies vomiting or shortness of breath.. 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 - Infectious Disease History:: Denies. - Social history:: Smoking status: Patient denies any tobacco usage or history of. ROS: 13:33 Constitutional: Negative for fever, and chills. ms3 13:33 Respiratory: Negative for shortness of breath, cough, wheezing, and pleuritic chest pain, Abdomen/GI: Negative for abdominal pain, nausea, vomiting, diarrhea, and constipation, Skin: Negative for injury, rash, and discoloration, 13:33 Cardiovascular: Positive for chest pain, Exam: 13:33 Constitutional: This is a well developed, well nourished patient who is awake, alert, ms3 and in no acute distress. Head/Face: Normocephalic, atraumatic. Chest/axilla: Normal chest wall appearance and motion. Nontender with no deformity. Cardiovascular: Regular rate and rhythm with a normal S1 and S2. No gallops, murmurs, or rubs. Normal PMI, no JVD. No pulse deficits. Respiratory: Lungs have equal breath sounds bilaterally, clear to auscultation and percussion. No rales, rhonchi or wheezes noted. No increased work of breathing, no retractions or nasal flaring. Abdomen/GI: Soft, non-tender, with normal bowel sounds. No distension or tympany. No guarding or rebound. No evidence of tenderness throughout. Skin: Warm, dry with normal turgor. Normal color with no rashes, no lesions, and no evidence of cellulitis. 13:33 ECG was reviewed by the Attending Physician. Vital Signs: 13:10 BP 139 / 93; Pulse 87; Resp 18 S; Temp 99(O); Pulse Ox 99% on R/A; Weight 54.43 kg (R); kc6 Height 5 ft. 0 in. (R); Pain 4/10; 14:30 BP 117 / 83; Pulse 90; Resp 20; Pulse Ox 97% on R/A; me1 15:30 BP 120 / 84; Pulse 86; Resp 19; Pulse Ox 100% on R/A; me1 16:34 BP 118 / 79; Pulse 84; Resp 18; Temp 98.1; Pulse Ox 98% ; me1 13:10 Body Mass Index 23.44 (54.43 kg, 152.4 cm) kc6 13:10 Pain Scale: Adult kc6 MDM: 13:19 Patient medically screened. ms3 13:33 Differential diagnosis: abnormal EKG, acute myocardial infarction, coronary artery ms3 disease. 18:05 HEART Score: History: Slightly Suspicious (0), ECG: Normal (0), Age: > 45 and < 65 ms3 years (1), Risk Factors: No Risk Factors Known (0), Troponin: < or = 1 x Normal Limit (0), Total Score = 1. The patient was given aspirin in the Emergency Department. Data reviewed: vital signs, nurses notes, lab test result(s), EKG, radiologic studies, and as a result, I will discharge patient. I considered the following discharge prescriptions or medication management in the emergency department Medications were administered in the Emergency Department. See MAR. Independent interpretation of the following test(s) in the Emergency Department EKG: See my EKG interpretation above. Independent interpretation of the following test(s) in the Emergency Department surveillance system monitor: rate is 82 beats/min, Rhythm is normal sinus rhythm, regular. Counseling: I had a detailed discussion with the patient and/or guardian regarding the historical points, exam findings, and any diagnostic results supporting the discharge/admit diagnosis, lab results, radiology results, the need for outpatient follow up, to return to the emergency department if symptoms worsen or persist or if there are any questions or concerns that arise at home. Special discussion: Based on the patient's history, exam, and Dx evaluation, there is no indication for emergent intervention or inpatient Tx. It is understood by the patient/guardian that if the Sx's persist or worsen they need to return immediately for re-evaluation. ED course: Discussed labs, EKG, chest x-ray findings with patient. Patient to follow-up with Dr. Castro in 2 to 3 days. All questions were answered. Return precautions discussed include worsening symptoms, or any other concerns. On reevaluation patient is alert and oriented x 4, no apparent distress, nontoxic-appearing, speaking full sentences, ambulatory in the emergency department. 12/20 13:20 Order name: Basic Metabolic Panel; Complete Time: 14:41 ms3 12/20 13:20 Order name: CBC with Diff; Complete Time: 14:41 ms3 12/20 13:20 Order name: LFT's; Complete Time: 14:41 ms3 12/20 13:20 Order name: Magnesium; Complete Time: 14:41 ms3 12/20 13:20 Order name: Troponin HS; Complete Time: 14:41 ms3 12/20 13:20 Order name: XRAY Chest (1 view); Complete Time: 16:07 ms3 12/20 13:20 Order name: Cardiac monitoring; Complete Time: 13:31 ms3 12/20 13:20 Order name: EKG - Nurse/Tech; Complete Time: 13:22 ms3 12/20 13:20 Order name: IV Saline Lock; Complete Time: 13: ms3 12/20 13:20 Order name: Labs collected and sent; Complete Time: 13:31 ms3 12/20 13:20 Order name: O2 Per Protocol; Complete Time: : ms3 12/20 13:20 Order name: O2 Sat Monitoring; Complete Time: 13:31 ms3 EC:33 Rate is 84 beats/min. Rhythm is regular. QRS Outlook is Normal. FL interval is normal. ms3 Clinical impression: Normal ECG. Interpreted by me. Reviewed by me. Administered Medications: 13:27 Drug: Aspirin PO Chewable Tablet 324 mg PO once; 81 mg tablets x 4 Route: PO; kc6 15:43 Follow up: Response: No adverse reaction me1 Disposition Summary: 12/21/23 16:21 Discharge Ordered Notes: Location: Home ms3 Condition: Stable ms3 Diagnosis - Chest pain, unspecified ms3 Followup: ms3 - With: Mert Castro MD - When: 2 - 3 days - Reason: Re-evaluation by your physician Discharge Instructions: - Discharge Summary Sheet ms3 - Nonspecific Chest Pain, Adult ms3 Forms: - Medication Reconciliation Form ms3 - Antibiotic Education ms3 - Prescription Opioid Use ms3 - Patient Portal Instructions ms3 - Leadership Thank You Letter ms3 Signatures: Dispatcher [employer] EDMiko Barone DO DO ms3 Racheal Escobedo RN RN kc6 Bailey Delgado RN me1 Corrections: (The following items were deleted from the chart) 13:12 13:11 Home Meds: Unable to obtain; kc6 [facility]
[2023-12-21 17:02] VITALS: BP 118/79; TEMP 98.1; O2SAT 98
--- NOTE | 2023-12-23 12:59 | EKG ---
Test Date: 2023-12-21 Test Time: 13:20:11 Sports Doctor: ANAI MEASUREMENT RESULTS: Intervals: Rate: 84 WY: 102 QRSD: 76 QT: 362 QTc: 427 Converse: P: 23 WY: 102 QRS: 42 T: 27 INTERPRETIVE STATEMENTS: Sinus rhythm with short [place] Otherwise normal ECG No previous ECG available for comparison Electronically Signed On 12-23-23 12:55:58 CDT by David Johansen
== END 2023-12-21 16:35 | disposition home or self-care (01) ==
LOC: ER 13:05
DX: R07.89 Other chest pain (principal); R11.0 Nausea
CPT/HCPCS: 36415; 71045; 80048; 80076; 83735; 84484; 85025; 93005; 99284

== ENCOUNTER 2024-06-23 01:07 | Emergency (ER) | payer BC ==
--- OUTSIDE RECORDS SUMMARY | 2024-06-23 01:10 | XMS REPORT | Continuity of Care Document ---
Author Name Unknown Address [address] [facility] [address] [place] [address] [facility] thconnect Address [address] [facility]. [address] [place] [address] Care Team Providers Care Price Lister Name Role Phone Jairo, Riya K Primary Care Physician INESSA PINEDA Attending Clinician Unavailab anthony DUMONT Attending Clinician Unavailable ALFA_BOB_Zenia Attending Clinician Unavailab Danie Aldridge Attending Clinician Unavailable Cary Knutson Attending Clinician Unavailable Monique Aquino RN Attending Clinician Unavailable Doctor Unassigned, [place] Attending Clinician U PATI Robbins Attending Clinician Unavailable ALFA_BOB_Cathmichaela Admitting Clinician Unavailab Cary Ruiz Admitting Clinician Unavailable Payers Payer Name Policy Type Policy Number Effective Date Expirati on Date Source BCBS 2 [id number] 2024 00:00:00 [place] [id number] 2020 00:00:00 Problems Condition Name Condition Details Condition Category Status Onset Date Resolution Date Last Treatment Date Treating Clinician Comments Source Palpitatio ns Palpitatio ns Disease Active 2-10 00:00: 00 Lavinia Flahertya donnell Encounter for screening for malignant neoplasm of colon Encounter for screening for malignant neoplasm of colon Disease Active 210 00:00: 00 Lavinia Azar Externa donnell 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 Active 8- 00:00: 00 [facility] Urinary incontinen ce Urinary Incontinen ce Problem Active 8 00:00: 00 [facility] Allergies, Adverse Reactions, Alerts Allergy Name Allergy Type Status Severity Reaction(s) Onset Date Inactive Date Treating Clinician Comments Source Penicill ins Propensi ty to adverse reaction s Active Rash 2 00:00: 00 Lavinia Flahertya donnell Penicill ins DA Active [place] rash 2022-04 00:00: 00 [facility] Penicill ins DA Active [place] rash 2022-04 00:00: 00 [facility] Penicill ins DA Active [place] rash 10-08 00:00: 00 [facility] NO KNOWN ALLERGIE S Drug Class Active [facility] PENICILL INS Allergy to substanc e Active Itching, Rash [facility] Social History Social Habit Start Date Stop Date Quantity Comments Source ASSERTION Not Lavinia Mcdermott - External Sexual orientation Silas cheryl Mcdermott - External Tobacco use and exposure 2024-06-05 00:00:00 2024-06-05 00:00:00 Smokeless tobacco non-user Lavinia Mcdermott - External Alcoholic beverage intake 2024-06-05 00:00:00 2024-06-05 00:00:00 Ex-drinker (finding) Lavinia Mcdermott - External History of Social function 2024-06-05 00:00:00 2024-06-05 00:00:00 Lavinia Mcdermott - External Sex 2024-05-03 12:00:10 2024-05-03 12:00:10 Female (finding) Lavinia Mcdermott - External Exposure to SARS-CoV-2 (event) 2020-11-16 00:00:00 2020-12-16 11:47:00 Not sure [facility] Sex assigned at 1975 00:00:00 1975 00:00:00 Lavinia Parekhybold - External Smoking Status Start Date Stop Date Source Tobacco smoking consumption unknown [facility] Never smoked tobacco Lavinia Praekhybold - External Immunizations Ordered Immunization Name Filled Immunization Name Date Status Comments Source Shingles IM (Shingrix) Unknown Completed Lavinia Seybold - External Vital Signs Vital Name Observation Time Observation Value Comments S ource Systolic blood pressure 2024-06-05 14:00:00 100 mm[Hg] Lavinia Seybo ld - External Diastolic blood pressure 2024-06-05 14:00:00 76 mm[Hg] Lavinia Parekhybo ld - External Heart rate 2024-06-05 14:00:00 76 /min Abdiaziz y Seybold - External Body temperature 2024-06-05 14:00:00 36.61 Lori Lavinia Parekhybold - External Respiratory rate 2024-06-05 14:00:00 18 /min Lavinia Parekhybold - External Body height 2024-06-05 14:00:00 152.4 cm Meka ey Seybold - External Body weight 2024-06-05 14:00:00 54.432 kg Meka ey Seybold - External BMI 2024-06-05 14:00:00 23.44 kg/m2 Meka ey Seybold - External Oxygen saturation in Arterial blood by Pulse oximetry 2024-06-05 14:00:00 99 /min Lavinia Merao ld - External Body Weight 2023-10-04 00:00:00 126 [lb_av] [facility] BMI (Body Mass Index) 2023-10-04 00:00:00 24.6 kg/m2 [facility] Height 2023-10-04 00:00:00 60 [in_i] [facility] BP Diastolic 2023-10-04 00:00:00 80 mm[Hg] [facility] BP Systolic 2023-10-04 00:00:00 122 mm[Hg] [facility] Procedures Procedure Date / Time Performed Performing Clinician Source Hysterectomy 2023-04-13 00:00:00 Janee Yeung edical ASSIGNMENT OF BENEFITS 2020-12-16 16:26:40 Docto r Unassigned, [place] [facility] Hernia Repair 2008-04-26 00:00:00 [facility] Medical Encounters Start Date/Time End Date/Time Encounter Type Admission Type Attending [facility] Care Department Encounter ID Source 2024-06-08 00:00:00 2024-06-08 00:00:00 Outpatient INESSA PINEDA LAVINIA [id number] [facility] 2024-06-06 00:00:00 2024-06-06 00:00:00 Outpatient INSESA PINEDA LAVINIA [id number] [facility] 2024-06-05 08:50:00 2024-06-05 08:50:00 Outpatient LAB90 LAVINIA LAVINIA [id number] [facility] 2024-06-05 08:00:00 2024-06-05 08:00:00 Outpatient INESSA PINEDA LAVINIA [id number] [facility] 2024-06-05 08:00:00 2024-06-05 08:00:00 Outpatient INESSA PINEDA LAVINIA [id number] [facility] 2023-10-04 00:00:00 2023-10-04 00:00:00 Cary Knutson MD: [address], [address], [place] [address] , Ph. [phone] [facility] _[address] Office* [id number] [facility] 2023-06-09 00:00:00 2023-06-09 00:00:00 Outpatient [facility] _Cathey PRIV PRIV [id number] [facility] 2023-06-08 00:00:00 2023-06-08 00:00:00 Outpatient [facility] _Cathey PRIV PRIV [id number] [facility] 2023-06-07 00:00:00 2023-06-07 00:00:00 Outpatient [facility] _Cathey PRIV PRIV [id number] [facility] 2023-04-29 00:00:00 2023-04-29 00:00:00 Outpatient [facility] _Cathey PRIV PRIV [id number] [facility] 2023-04-28 00:00:00 2023-04-28 00:00:00 Outpatient [facility] _Cathey PRIV PRIV [id number] [facility] 2023-04-16 15:00:00 2023-04-16 21:15:00 Emergency Danie Velasco [facility] [id number] [facility] 2023-04-13 05:42:00 2023-04-14 13:04:00 Inpatient Cary Beltran [facility].01 [id number] [facility] 2023-03-29 00:00:00 2023-03-29 00:00:00 Outpatient [facility] _Cathey PRIV PRIV [id number] [facility] 2023-03-29 00:00:00 2023-03-29 00:00:00 Outpatient [facility] _Cathey PRIV PRIV [id number] [facility] 2023-03-26 00:00:00 2023-03-26 00:00:00 Outpatient [facility] _Cathey PRIV PRIV [id number] [facility] 2023-03-24 00:00:00 2023-03-24 00:00:00 Outpatient [facility] _Cathey PRIV PRIV [id number] [facility] 2023-02-06 00:00:00 2023-02-06 00:00:00 Outpatient [facility] _Cathey PRIV PRIV [id number] [facility] 2023-01-27 00:00:00 2023-01-27 00:00:00 Outpatient [facility] _Cathey PRIV PRIV [id number] [facility] 2023-01-04 00:00:00 2023-01-04 00:00:00 Outpatient [facility] _Cathey PRIV PRIV [id number] [facility] 2023-01-04 00:00:00 2023-01-04 00:00:00 Outpatient [facility] _Cathey PRIV PRIV [id number] [facility] 2023-01-01 00:00:00 2023-01-01 00:00:00 Outpatient [facility] _Cathey PRIV PRIV [id number] [facility] 2022-12-30 00:00:00 2022-12-30 00:00:00 Outpatient [facility] _Cathey PRIV PRIV [id number] [facility] 2022-12-14 00:00:00 2022-12-14 00:00:00 Outpatient [facility] _Cathey PRIV PRIV [id number] [facility] 2022-12-14 00:00:00 2022-12-14 00:00:00 Outpatient [facility] _Cathey PRIV PRIV [id number] [facility] 2022-12-11 00:00:00 2022-12-11 00:00:00 Outpatient [facility] _Cathey PRIV PRIV [id number] [facility] 2022-12-10 00:00:00 2022-12-10 00:00:00 Outpatient [facility] _Cathey PRIV PRIV [id number] [facility] 2020-12-17 00:00:00 2020-12-17 00:00:00 Letter (Out) Monique Aquino [facility] 1.840.114 350.1.13.10 [id number] [id number] [facility] 2020-12-17 00:00:00 2020-12-17 00:00:00 Patient Secure Msg Doctor Unassigned, [place] [facility] 1..840.114 350.1.13.10 4.2.7.2.686 [id number] [facility] 2020-12-16 11:30:00 2020-12-16 11:30:00 Outpatient PATI [facility] [id number] [facility] 2020-12-16 00:00:00 2020-12-16 00:00:00 Orders Only Doctor Unassigned, [place] [facility] 1.2.840.114 350.1.13.10 4.2.7.2.686 [id number] [facility] Results Test Description Test Time Test Comments Results Resul t Comments Source - CT ABD PELVIS W/CONT 2023-04-16 [facility] 1975 Sex: F Patient Name: ARSLAN TERAN Unit No: [id number] EXAMS: CPT CODE: [id number] CT ABD PELVIS W/CONT 95903 Clinical History: Rule out obstruction s/p partial [...] with ACR practice standards and adherence to director oncology recommendations. One or more of the following [...] significant pelvic free fluid. Status post [facility] NAME: ARSLAN TERAN Radiology Department PHYS: [id number] - Danie Moran MD [address] : 1975 AGE: 47 SEX: F [place], [place] [address] LOC: F.ERS PHONE #: [phone] EXAM DATE: 04/16/2023 STATUS: REG ER FAX #: [phone] RAD NO: [id number] Page 1 Signed Report 1 Patient Name: ARSLAN TERAN Unit No: [id number] EXAMS: CPT CODE: [id number] CT ABD PELVIS W/CONT 16439 (Continued) hysterectomy with trace stranding within the [...] CTDI: 4.06 DLP: 185.43 Trnscrbd D/ (2013) [email or web address] [facility] NAME: ARSLAN TERAN KAYLI Radiology Department PHYS: Danie Herr MD [address] : 1975 AGE: 47 SEX: F [place] [address] LOC: BlakeERS PHONE #: [phone] EXAM DATE: 04/16/2023 STATUS: REG ER FAX #: [phone] RAD NO: [id number] Page 2 Signed Report 1 Patient Name: ARSLAN TERAN Unit No: [id number] EXAMS: CPT CODE: [id number] CT ABD PELVIS W/CONT 48594 (Continued) Orig Print D/T: S: 04/16/2023 (2017) [facility] NAME: ARSLAN TERAN KAYLI Radiology Department PHYS: Danie Herr MD [address] : 1975 AGE: 47 SEX: F [place] [address] LOC: BlakeERS PHONE #: [phone] EXAM DATE: 04/16/2023 STATUS: REG ER FAX #: [phone] RAD NO: [id number] Page 3 Signed Report 1 CREATININE W ESTIMATED [id number] 19:20:00* Test Item Value Reference Range Interpretation Comme nts BEDSIDE CREATININE (test cod e = CREATBED) 0.54 mg/dL 0.51-1.19 N GLOMERULAR FILTRATION RATE P OC (test code = GFRBED) >60 58-135 N CBC W/AUTO [id number] 19:11:00* Test Item Value Reference Range Interpretation [...] # (test code = BA#) 0.1 K/mm3 [id number] 12:28:00* Test Item Value Reference Range Interpretation Comme nts SURGICAL (test code = SR) R UN DATE: 04/16/23 [facility] PAGE 1 RUN TIME: 1228 Specimen Inquiry RUN USER: INTERFACE P ATIENT: ARSLAN TERAN [facility] #: [id number] LOC: VELMA U #: [id number] AGE/SX: 47/F ROOM: [facility] RE04/13/23REG DR: Cary Knutson MD : [birth year] BED: A DIS: 04/14/23 STATUS: DIS Dell TLOC: SPEC #: [id number] RECD: 04/13/23 STATUS: SOUAnjelica REQ #: [id number] REINALDO: 04/13/[address] [facility] DR: Cary Knutson MD ENTERED: 04/13/23 SP TYPE: SURGICAL OTHR DR: ORDERED: ANATOMIC SPEC, SPEC TRACK, [id number] PROCEDURES: [id number] (04/13/23) TISSUES: A. UTERUS W/WO TUBES OVARIES [...] length and 3.7 cm in diameterEctocervical Mucosa: [place]-purple smooth and glisteningCervical os: Slit-like; 1.5 cm [...] 1228 Specimen Inquiry RUN USER: INTERFACE S PEC #: [id number] PATIENT: CRESENCIOARSLAN DAWN #[id number] (Continued) GROSS DESCRIPTION (Continued) Cut surface: Pinpoint [...] endometriumA6 left fallopian tubeA7 right fallopian tube MP 04/13/23 [facility] [place] [address] Immunohistochemical stains and Special Stains are performed at [address], [address], [place] [address] Unless gross only, the diagnosis is based [...] RECTOCELE, BRYON. --- Signed SIGNATURE ON FILE Elizabeth Kelley MD 04/16/23 1228 END OF REPORT HGB [id number] 04:37:00* Test Item Value Reference Range Interpretation Comme nts HEMOGLOBIN (test code = HGB) 11.8 g/dL 10.1-13.8 N HEMATOCRIT (test code = HCT) 35.1 % 32.5-41.8 N BASIC METABOLIC [id number] 06:47:00* Test Item Value Reference Range Interpretation [...] thepatient's age is <18 years. UR HCG [id number] 06:22:00* Test Item Value Reference Range Interpretation Comme nts UR HCG QUAL (test code = HCGQLU) NEGATIVE 1. Very dilute u rine specimens, as indicated by a lowspecific gravity, may not contain sales representative consultant levels ofhCG. 2. False negative results may occur when the levels of hCGare below the sensitivity level of the test. If is still suspected, a first morningurine specimen should be collected 48 hours later andtested. Notes Date/Time Note Provider Source 2023-04-16 15:31:00 [facility] ([facility]) EMERGENCY PROVIDER REPORT REPORT#:[id number] REPORT STATUS: Signed DATE:04/16/23 TIME: 153 PATIENT: ARSLAN TERAN UNIT #: [id number] ROOM/BED: AGE: 47 SEX: F PCP PHYS: Cary Knutson MD SERVICE AUTHOR: Jareth Villanueva MD * ALL edits or amendments must be made on the electronic/computer document * Jareth Villanueva 04/16/231530: HPI-General Illness General Initial Greet Date/Time 04/16/23 [...] 04/16 1507 O2 Delivery Room air 04/16 1507 Temp 98.7 04/16 150 Pulse 85 04/16 [...] ONE 04/16 1745 DC 04/16 SL 04/16 174 1745 Polyethylene Glycol/ 250 ML .[Q15MN] 04/16 1530 CKD 04/16 Electrolytes PO 1745 Other Sig/Promise Start time Last Medication Dose Route Stop Time Status Admin Sodium Chloride 50 ML .STK-MED ONE 04/16 1933 DC 04/16 IV 04/16 Patient Discharge Departure Vital Signs/Condition Vital Signs First Documented: Result Date Time Pulse Ox 100 04/16 1507 B/P 133/84 04/16 1507 B/P Mean 100 04/16 1507 O2 Delivery Room air 04/16 1507 Temp 98.7 04/16 150 Pulse 85 04/16 1507 Resp 16 04/16 1507 Last Documented: Result Date Time Pulse Ox 100 04/16 1916 B/P 128/86 04/16 1916 B/P Mean 100 04/16 1916 O2 Delivery Room air 04/16 1916 Temp 98.5 04/16 1916 Pulse 86 04/16 1916 Resp 18 04/16 1916 All vital signs available at the time of this entry have been reviewed. Condition Stable, Improved Clinical Impression Time of Impression 1757 Pt/Provider Handoff Care Transferred to Dr Moran Care Transferred at 1757 Discussed Complaint(s) Yes Danie Moran 04/16/231854: Interpretation Diagnostics Lab Results Interpretation Results Laboratory [...] % (Auto) (14.5 - 29.7 %) 19.3 [place] % (Auto) (3.6 - 10.2 %) 5.8 Eos % (Auto) (0.0 - 3.0 %) 1.5 Baso % (Auto) (0.1 - 0.9 %) 0.7 Neut # (Auto) (K/mm3) 7.6 Lymph # (Auto) (K/mm3) 2.0 [place] # (Auto) (K/mm3) 0.6 Eos # (Auto) [...] anterolisthesis of L4 on L5. Impression By: [email or web address] - Zoila Allen MD Lab Statement Laboratory [...] amount of fecal matter. Time of Re-Eval 1855 Re-Eval Status Improved Re-Evaluation/Progress #2 Time of [...] a call to 911. at 1757 at 205 RPT #:[id number] END OF REPORT [facility] 2023-04-14 07:16:00 [facility] ([facility]) Gynecology Post Prog Note REPORT#:[id number] REPORT STATUS: Signed REPORT INITIALIZATION DATE:04/14/23 TIME: 715 PATIENT: ARSLAN TERAN UNIT #: [id number] ROOM/BED: [address] : [birth year] AGE: 47 SEX: F ATTEND: Cary Knutson MD ADM AUTHOR: Cary Knutson MD REPT SERVICE DT/TIME: 04/14/23 0716 * ALL edits or amendments must be made on the electronic/computer document * General ORM Surgeries: Surgery Date and Time: 04/13/2023729 Primary Procedure: FOUR PUNCTURE TOTAL LAPAROSCOPIC Secondary Procedures: LAPAROSCOPIC UTEROSACRAL LIGAMENT MIDURETHRAL SLING CYSTOSCOPY WITH PROCEDURE POSTERIOR REPAIR LAPAROSCOPIC BILATERAL SALPINGECTOMY Post-op: day 1 Subjective Patient reports: Yes: ambulating, flatus/bowel movement, pain controlled, tolerating diet. Objective General VS/I O: Last Documented: Result Date Time Pulse Ox 96 04/14 0405 B/P 104/66 04/14 0405 B/P Mean 78.5 04/14 0405 O2 Delivery Room air 04/14 0405 Temp 98.6 04/14 0405 Pulse 79 04/14 0405 Resp 18 04/14 0405 O2 Flow Rate 10 04/13 1110 24 [...] -voiding trial -d/c instructions reviewed at 0716 [facility] #:[id number] END OF REPORT [facility] 2023-04-13 10:16:00 [id number] [facility] [address], [place] [address] PATIENT NAME: ARSLAN TERAN ADMIT DATE: 04/13/23 ACCOUNT NO: [id number] ROOM NO: 2636 AGE: 47 SEX: F ADMITTING PHYSICIAN: Cary [...] 7. Posterior colporrhaphy. SURGEON: Cary Knutson M.D. TRAIN RESERVATION CLERK: resident Ximena Conteh M.D. ANESTHESIA: General endotracheal [...] was removed. Cystourethroscopy was PATIENT NAME: ARSLAN TERAN then performed with a 70-degree cystoscope, revealing [...] Date Transcribed: 04/13/2023 10:39:44 ALFA/JORDAN/PASTOR Receipt ID: [id number] Authenticated by Cary Knutson MD On 04/13/2023 12:14:22 PM at 1214 PATIENT NAME: ARSLAN TERAN [facility]
[2024-06-23 02:27] LABS: Absolute Basophils 0.1 K/uL (0-0.5); Absolute Eosinophils 0.2 K/uL (0-0.5); Absolute Lymphocytes (CBC) 1.6 K/uL (0.7-4.9); Absolute Monocytes 0.8 K/uL (0.1-1.3); Absolute Neutrophil 12.1 K/uL (1.8-8.0); Basophils % 0.6 % (0-1.3); Eosinophils % 1.3 % (0-4.4); Hematocrit 40.2 % (36.0-45.0); Hemoglobin 13.6 g/dL (12.0-15.0); Lymphocytes % 10.6 % (15.3-44.8); MCH 27.9 pg (27.0-35.0); MPV 7.6 fL (7.6-11.3); Monocytes % 5.1 % (3.3-12.3); Neutrophils % 82.4 % (41.7-73.7); Platelets 252 thou/uL (152-406); Red Cell Distribution Width 15.5 % (12.1-15.2)
[2024-06-23 02:35] LABS: D-Dimer 1.032 FEUug/mL (0-0.500); PT Prothrombin Time 11.4 SECONDS (10.0-13.0)
[2024-06-23 02:46] LABS: ALT/SGPT 17 U/L (13-56); AST/SGOT 11 U/L (15-37); Albumin 3.8 g/dL (3.4-5.0); Albumin/Globulin Ratio 1.2 (1.1-1.8); Alkaline Phosphatase 50 U/L (45-117); Anion Gap 9.5 mEq/L (5.0-15.0); BUN Blood Urea Nitrogen 16 mg/dL (7-18); Bicarbonate 24 mEq/L (21-32); Bilirubin Total 0.4 mg/dL (0.2-1.0); Globulin 3.2 g/dL (2.3-3.5); Glomerular Filtration Rate 102 ml/min (=/>90); Glucose Level 117 mg/dL (74-106); Magnesium 2.2 mg/dL (1.6-2.4); NT PRO-BNP 13 pg/mL (<125); Potassium 3.5 mEq/L (3.5-5.1); Sodium Level 138 mEq/L (136-145)
[2024-06-23 02:48] LABS: Bilirubin Direct < 0.2 mg/dL (0-0.2); Bilirubin Indirect, Calculated 0.2 mg/dL (0.2-0.8); Troponin High Sensitivity < 3.0 pg/mL (<58.9)
--- NOTE | 2024-06-23 02:51 | RAD REPORT ---
US EXTREMITY VEINS UNILATERAL INDICATION: Right leg pain COMPARISON(S): None. TECHNIQUE: Grayscale and color/spectral Doppler ultrasound of the right lower extremity veins. FINDINGS: There is normal flow and compressibility in the right common femoral, greater saphenous, femoral, pop liteal and posterior tibial veins. No intraluminal thrombus is visualized. Visualized waveforms demonstrate normal respiratory variability and augmentation. IMPRESSION: No sonographic evidence of deep venous thrombosis in the imaged right lower extremity. Electronically signed by: Cassie Garcia MD 06/23/2024 02:47 AM [facility] Due to temporary technical issues with the PACS/Beintooibe reporting system, reports are being signed by the in-house radiologist without review as a courtesy to ensure prompt reporting the interpreting radiologist is fully responsible for the content of the report. Transcribed Date/Time: 06/23/2024 2:51 AM
--- NOTE | 2024-06-23 04:22 | ER ---
Nurse's Notes [facility] Name: Adri Teran Age: 48 yrs Sex: Female : 1975 Arrival Date: 06/23/2024 Time: 01:07 Bed 3 Private MD: Diagnosis: Acute generalized lightheadedness, acute right thigh pain , acute dizziness Presentation: 06/23 01:43 Chief complaint: Patient states: WOKE UP WITH RIGHT HIP PAIN AND WHEN SHE GOT UP SHE jj7 FELT LIGHTHEADED. LIGHTHEADED HAS RESOLVED. FELT SHE WAS HAVING A PANIC ATTACK. JUST ESTROGEN W/ ESTRADIOL AND NERVOUS ABOUT BLOOD CLOTS. Coronavirus screen: At this time, the client does not indicate any symptoms associated with coronavirus-19. Ebola Screen: No symptoms or risks identified at this time. Initial Sepsis Screen: Does the patient meet any 2 criteria? No. Patient's initial sepsis screen is negative. Does the patient have a suspected source of infection? No. Patient's initial sepsis screen is negative. Risk Assessment: Do you want to hurt yourself or someone else? Patient reports no desire to harm self or others. Onset of symptoms was June 23, 2024. 01:43 Method Of Arrival: Ambulatory [facility] 01:43 Acuity: EDISON 3 jj7 Triage Assessment: 01:51 General: Appears in no apparent distress. comfortable, Behavior is calm, cooperative, jj7 appropriate for age. Pain: Denies pain. Neuro: Denies dizziness. Cardiovascular: Denies diaphoresis, lightheadedness. GI: Reports nausea. 01:52 Musculoskeletal: Reports pain in right leg. 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 - Infectious Disease History:: Denies. - Social history:: Smoking status: Patient denies any tobacco usage or history of. Patient/guardian denies using alcohol, street drugs, IV drugs. - Family history:: not pertinent. Screenin:52 [facility] ED Fall Risk Assessment (Adult) History of falling in the last 3 months, jj7 including since admission No falls in past 3 months (0 pts) Confusion or Disorientation No (0 pts) Intoxicated or Sedated No (0 pts) Impaired Gait No (0 pts) Mobility Assist Device Used No (0 pt) Altered Elimination No (0 pt) Score/Fall Risk Level 0 - 2 = Low Risk Oriented to surroundings, Maintained a safe environment, Educated pt \T\ family on fall prevention, incl call for assistance when getting out of bed, Assessed \T\ reinforced patient's understanding of fall precautions. Abuse screen: Denies threats or abuse. Nutritional screening: No deficits noted. Tuberculosis screening: No symptoms or risk factors identified. Assessment: 02:34 Reassessment: Patient appears in no apparent distress at this time. Patient and/or bm8 family updated on plan of care and expected duration. Pain level reassessed. Patient is alert, oriented x 3, equal unlabored respirations, skin warm/dry/pink. Patient states feeling better. Patient states symptoms have improved. General: Appears in no apparent distress. comfortable, Behavior is calm, cooperative, appropriate for age. Pain: Complains of pain in right hip Pain currently is 2 out of 10 on a pain scale. Quality of pain is described as aching, sharp. Neuro: Level of Consciousness is awake, alert, obeys commands, Oriented to person, place, time, situation, Appropriate for age. Cardiovascular: Heart tones S1 S2 present Capillary refill < 3 seconds in bilateral fingers Patient's skin is warm and dry. Respiratory: Airway is patent Respiratory effort is even, unlabored, Respiratory pattern is regular, symmetrical, Breath sounds are clear bilaterally. GI: Abdomen is flat, distended, Bowel sounds present X 4 quads. Abd is soft and non tender X 4 quads. : No signs and/or symptoms were reported regarding the genitourinary system. EENT: No signs and/or symptoms were reported regarding the EENT system. Derm: No signs and/or symptoms reported regarding the dermatologic system. Musculoskeletal: Circulation, motion, and sensation intact. Capillary refill < 3 seconds, in bilateral fingers. toes. Range of motion: intact in all extremities, Reports pain in right hip Pain is 2 out of 10 on a pain scale. 03:56 Reassessment: Patient appears in no apparent distress at this time. Patient and/or bm8 family updated on plan of care and expected duration. Pain level reassessed. Patient is alert, oriented x 3, equal unlabored respirations, skin warm/dry/pink. Patient denies pain at this time. Patient states feeling better. Patient states symptoms have improved. Vital Signs: 01:43 BP 136 / 84; Pulse 85; Resp 16; Temp 97.2; Pulse Ox 100% ; Weight 54.43 kg; Height 5 jj7 ft. 0 in. ; Pain 0/10; 02:34 BP 122 / 80; Pulse 76; Resp 19; Temp 97.2; Pulse Ox 100% ; Pain 2/10; bm8 03:56 BP 125 / 76; Pulse 78; Resp 18; Pulse Ox 97% ; Pain 0/10; bm8 01:43 Body Mass Index 23.44 (54.43 kg, 152.4 cm) jj7 01:43 Pain Scale: Adult jj7 02:34 Pain Scale: Adult bm8 03:56 Pain Scale: Adult bm8 Zachery Coma Score: 02:21 Eye Response: spontaneous(4). Motor Response: obeys commands(6). Verbal Response: bm8 oriented(5). Total: 15. 02:34 Eye Response: spontaneous(4). Motor Response: obeys commands(6). Verbal Response: bm8 oriented(5). Total: 15. 03:56 Eye Response: spontaneous(4). Motor Response: obeys commands(6). Verbal Response: bm8 oriented(5). Total: 15. 04:19 Eye Response: spontaneous(4). Motor Response: obeys commands(6). Verbal Response: sp4 oriented(5). Total: 15. ED Course: 01:09 Patient arrived in ED. jj6 01:15 Freddy Velazquez MD is Attending Physician. sp4 01:50 Triage completed. jj7 01:51 Arm band placed on right wrist. jj7 01:52 Patient has correct armband on for positive identification. jj7 02:21 Lennox Ceja, RN is Primary Nurse. bm8 02:21 Client placed on continuous cardiac and pulse oximetry monitoring. NIBP monitoring bm8 applied. vehicle monitor technician on. Pulse ox on. NIBP on. Door closed. Noise minimized. Warm blanket given. Pillow given. Oral care given. Head of bed elevated. 02:21 No provider procedures requiring assistance completed. Initial lab(s) drawn, by me, bmTaisha sent to lab. EKG done, by ED staff, reviewed by Freddy Velazquez MD. Inserted saline lock: 20 gauge in left antecubital area, using aseptic technique. Blood collected. Flushed with 10 mL NS. Patient maintains SpO2 saturation greater than 95% on room air. 02:25 Extremity Venous Uni Ltd US In Process Unspecified. EDMS 04:38 Provided Education on: post er care. bm8 04:38 IV discontinued, intact, bleeding controlled, No redness/swelling at site. Pressure bm8 dressing applied. Administered Medications: No medications were administered Medication: 02:21 VIS not applicable for this client. bm8 Outcome: 04:22 Discharge ordered by . sp4 04:38 Discharged to home ambulatory, bm8 04:38 Condition: stable 04:38 Discharge instructions given to patient, Instructed on discharge instructions, follow up and referral plans. no drinking with medication, no driving heavy equipment, safety practices, Demonstrated understanding of instructions, follow-up care, medications, 04:39 Patient left the ED. bm8 Signatures: Dispatcher [employer] EDVT Natalia Viridiana jjReina Almazan RN RN jFreddy Chauhan MD MD sp4 Lennox Ceja, RN RN bm8 Corrections: (The following items were deleted from the chart) 01:53 01:51 Cardiovascular: Denies diaphoresis, lightheadedness, jnuno7 jj7
--- NOTE | 2024-06-23 04:22 | EDPHYS ---
Physician Documentation [facility] Name: Adri Teran Age: 48 yrs Sex: Female : 1975 Arrival Date: 06/23/2024 Time: 01:07 Bed 3 Private MD: ED Physician Freddy Velazquez HPI: 06/23 01:15 This 48 yrs old Female presents to ER via Unassigned with complaints of sp4 Shoulder Pain, Hip Pain, Dizziness, Nausea. 04:16 Patient is a very pleasant 48-year-old female who presents with acute dizziness and sp4 right thigh pain. Patient reports she was recently initiated on estrogen patch and this is 0.25. Patient reports she has history of partial hysterectomy patient developed lightheadedness right thigh pain is concerned about DVT in the right leg.. 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 - Infectious Disease History:: Denies. - Social history:: Smoking status: Patient denies any tobacco usage or history of. Patient/guardian denies using alcohol, street drugs, IV drugs. - Family history:: not pertinent. ROS: 04:16 Constitutional: Negative for fever, chills, and weight loss, positive right thigh pain sp4 positive lightheadedness positive nausea 04:16 All other systems are negative, Exam: 04:19 Constitutional: This is a well developed, well nourished patient who is awake, alert, sp4 and in no acute distress. Head/Face: Normocephalic, atraumatic. Eyes: Pupils equal round and reactive to light, extra-ocular motions intact. Lids and lashes normal. Conjunctiva and sclera are not injected. Cornea within normal limits. Periorbital areas with no swelling, redness, or edema. ENT: Nares patent. No nasal discharge, no septal abnormalities noted. Tympanic membranes are normal and external auditory canals are clear. Oropharynx with no redness, swelling, or masses, exudates, or evidence of obstruction, uvula midline. Mucous membranes moist. Neck: Trachea midline, no thyromegaly or masses palpated, and no cervical lymphadenopathy. Supple, full range of motion without nuchal rigidity, or vertebral point tenderness. Chest/axilla: Normal chest wall appearance and motion. Nontender with no deformity. No lesions are appreciated. Cardiovascular: Regular rate and rhythm with a normal S1 and S2. No gallops, murmurs, or rubs. Normal PMI, no JVD. No pulse deficits. Respiratory: Lungs have equal breath sounds bilaterally, clear to auscultation and percussion. No rales, rhonchi or wheezes noted. No increased work of breathing, no retractions or nasal flaring. Abdomen/GI: Soft, with normal bowel sounds. No distension or tympany. No guarding or rebound. No evidence of tenderness throughout. Back: No spinal tenderness. No costovertebral tenderness. Skin: Warm, dry with normal turgor. Normal color with no rashes, no lesions, and no evidence of cellulitis. MS/ Extremity: Pulses equal, no cyanosis. Neurovascular intact. Full, normal range of motion. Neuro: Awake and alert, GCS 15, oriented to person, place, time, and situation. Cranial nerves II-XII grossly intact. Motor strength 5/5 in all extremities. Sensory grossly intact. Psych: Awake, alert, with orientation to person, place and time. Behavior, mood, and affect are within normal limits 04:19 ECG was reviewed by the Attending Physician. EKG at 0 228 Vital Signs: 01:43 BP 136 / 84; Pulse 85; Resp 16; Temp 97.2; Pulse Ox 100% ; Weight 54.43 kg; Height 5 jj7 ft. 0 in. ; Pain 0/10; 02:34 BP 122 / 80; Pulse 76; Resp 19; Temp 97.2; Pulse Ox 100% ; Pain 2/10; bm8 03:56 BP 125 / 76; Pulse 78; Resp 18; Pulse Ox 97% ; Pain 0/10; bm8 01:43 Body Mass Index 23.44 (54.43 kg, 152.4 cm) jj7 01:43 Pain Scale: Adult jj7 02:34 Pain Scale: Adult bm8 03:56 Pain Scale: Adult bm8 Zachery Coma Score: 02:21 Eye Response: spontaneous(4). Motor Response: obeys commands(6). Verbal Response: bm8 oriented(5). Total: 15. 02:34 Eye Response: spontaneous(4). Motor Response: obeys commands(6). Verbal Response: bm8 oriented(5). Total: 15. 03:56 Eye Response: spontaneous(4). Motor Response: obeys commands(6). Verbal Response: bm8 oriented(5). Total: 15. 04:19 Eye Response: spontaneous(4). Motor Response: obeys commands(6). Verbal Response: sp4 oriented(5). Total: 15. MDM: 01:26 Medical Screening Exam initiated sp4 04:19 Differential diagnosis: DJD, tendonitis, Acute dizziness, lightheadedness, acute sp4 vertigo. Data reviewed: vital signs, nurses notes, lab test result(s), EKG. ED course: US EXTREMITYVEINS UNILATERAL INDICATION: Right leg pain COMPARISON(S): None. TECHNIQUE: Grayscale and color/spectral Doppler ultrasound of the right lower extremity veins. FINDINGS: There is normal flow and compressibility in the right common femoral, greater saphenous, femoral, popliteal and posterior tibial veins. No intraluminal thrombus is visualized. Visualized waveforms demonstrate normal respiratory variability and augmentation. IMPRESSION: No sonographic evidence of deep venous thrombosis in the imaged right lower extremity. . 06/23 01:56 Order name: Basic Metabolic Panel; Complete Time: 04:09 06/23 01:56 Order name: CBC with Diff; Complete Time: 04:09 06/23 01:56 Order name: D-Dimer; Complete Time: 04:09 06/23 01:56 Order name: LFT's; Complete Time: 04:09 06/23 01:56 Order name: Magnesium; Complete Time: 04:09 06/23 01:56 Order name: NT PRO-BNP; Complete Time: 04:09 06/23 01:56 Order name: PT-INR; Complete Time: 04:09 06/23 01:56 Order name: Troponin HS; Complete Time: 04:09 06/23 01:57 Order name: Extremity Venous Uni Ltd US; Complete Time: 04:09 06/23 01:56 Order name: Cardiac monitoring; Complete Time: 02:06/23 01:56 Order name: EKG - Nurse/Tech; Complete Time: 02:38 sp4 06/23 01:56 Order name: IV Saline Lock; Complete Time: 02:21 sp4 06/23 01:56 Order name: Labs collected and sent; Complete Time: : sp4 EC: Rate is 68 beats/min. Rhythm is regular, Normal Sinus Rhythm. QRS [place] is Normal. OK sp4 interval is normal. QRS interval is normal. QT interval is normal. No Q waves. T waves are Normal. No ST changes noted. Clinical impression: Normal ECG. Interpreted by me. Reviewed by me. Administered Medications: No medications were administered Disposition Summary: 06/23/24 04:22 Discharge Ordered Notes: No evidence of emergent medical illness today on evaluation Location: Home sp4 Problem: new sp4 Symptoms: have improved sp4 Condition: Stable sp4 Diagnosis - Acute generalized lightheadedness, acute right thigh pain , acute dizziness sp4 Followup: sp4 - With: Private Physician - When: 7 - 10 days - Reason: Recheck today's complaints Discharge Instructions: - Discharge Summary Sheet sp4 - Dizziness, [id number] sp4 Forms: - Patient Portal Instructions sp4 Signatures: Dispatcher [employer] Reina Traylor RN RN jj7 Freddy Velazquez MD MD sp4 Corrections: (The following items were deleted from the chart) 01:57 01:57 BASIC METABOLIC PANEL+C.LAB.BRZ ordered. EDMS EDMS 01:57 01:57 CBC+H.LAB.BRZ ordered. EDMS EDMS 01:57 01:57 D-DIMER+COAG.LAB.BRZ ordered. EDMS EDMS 01:57 01:57 HEPATIC FUNCTION+C.LAB.BRZ ordered. EDMS EDMS 01:57 01:57 MAGNESIUM+C.LAB.BRZ ordered. EDMS EDMS 01:57 01:57 PROBNP+C.LAB.BRZ ordered. EDMS EDMS 01:57 01:57 PROTIME (+INR)+COAG.LAB.BRZ ordered. EDMS EDMS 01:57 01:57 Troponin High Sensitivity+C.LAB.BRZ ordered. EDMS EDMS 01:57 01:57 Extremity Venous Uni Ltd+US.RAD.BRZ ordered. EDMS EDMS
[2024-06-23 04:43] VITALS: TEMP 97.2
[2024-06-23 04:47] VITALS: BP 125/76; O2SAT 97
--- NOTE | 2024-06-26 12:15 | EKG ---
Test Date: 2024-06-23 Test Time: 02:28:39 Primary Care Sales Representative: KELLI MEASUREMENT RESULTS: Intervals: Rate: 68 VA: 132 QRSD: 74 QT: 386 QTc: 410 [place]: P: 58 VA: 132 QRS: 59 T: 55 INTERPRETIVE STATEMENTS: Normal sinus rhythm Normal ECG Compared to ECG 12/21/2023 13:20:11 Short VA interval no longer present Electronically Signed On 06-26-24 12:08:34 DATA SCIENCES DIRECTOR by David Johansen
== END 2024-06-23 04:39 | disposition home or self-care (01) ==
LOC: ER 01:07
DX: R42 Dizziness and giddiness (principal); M79.651 Pain in right thigh; R11.0 Nausea
CPT/HCPCS: 36415; 80048; 80076; 83735; 83880; 84484; 85025; 85379; 85610; 93005; 93971; 99284